=== PATIENT | male | born 1990 | race Caucasian/White ===

== ENCOUNTER 2025-07-21 10:24 | Emergency (ER) | payer MEDICAID ==
[~2025-07-21] VITALS: Ht 172.7 cm; Wt 77.0 kg
[2025-07-21] MEDS: HYDROCODONE/ACETAMINOPHEN 5/325MG TABLET PO ONE (11:00)
[2025-07-21] MEDS: LIDOCAINE HCL/EPINEPHRINE 1%-EPI 1:100,000 20ML VIAL INFIL ONE (11:01)
[2025-07-21] MEDS: TETANUS, DIPHTHERIA, PERTUSSIS VAC/PF 0.5ML (>10YR OLD) IM ONE (11:04)
[2025-07-21] MEDS ORDERED: CEPH500C2 MT (12:32)
[2025-07-21 14:12] VITALS: BP 104/66; PULSE 80; RESP 16; TEMP 36.7; O2SAT 100
== END 2025-07-21 14:21 | disposition home or self-care (01) ==
LOC: ER 10:24
DX: S81.011A Laceration without foreign body, right knee, initial encounter (principal); W45.8XXA Other foreign body or object entering through skin, initial encounter; Y93.89 Activity, other specified; Y92.89 Other specified places as the place of occurrence of the external cause; Y99.8 Other external cause status
CPT/HCPCS: 73562; 90715; 12002; 90471; 99283; J2004; Z7610 ×3